=== PATIENT | female | born 1960 | race Caucasian/White ===

== ENCOUNTER 2017-08-01 21:20 | Inpatient (IN) | payer MEDICARE ==
[~2017-08-01] VITALS: Ht 172.7 cm; Wt 90.8 kg
[2017-08-01 21:44] LABS: HEMATOCRIT 38.3 % (34.6-47.8); HEMOGLOBIN 12.9 g/dL (11.7-16.4); WHITE BLOOD COUNT 8.8 x10^3/uL (3.4-10)
[2017-08-01] MEDS ORDERED: DOCUSATE 100 MG CAPSULE PO PRN (23:30)
[2017-08-01] MEDS ORDERED: BISACODYL 10 MG SUPP PR PRN (23:30)
[2017-08-01] MEDS ORDERED: ONDANSETRON 2MG/ML, 2ML IVPush PRN (23:30)
[2017-08-02] MEDS: ENOXAPARIN 40 MG/0.4 ML SQ SCH ×2 (01:13→23:30)
[2017-08-02] MEDS: SODIUM CHLORIDE 0.9% 1,000 ML IV SCH ×3 (01:13→21:00)
[2017-08-02 04:27] VITALS: BP 121/64
[2017-08-02 08:24] VITALS: BP 113/66
[2017-08-02] MEDS ORDERED: ZOLP10TA5 PO (09:51)
[2017-08-02] MEDS ORDERED: GABA600T2 PO (09:51)
[2017-08-02] MEDS ORDERED: ASPI-496 PO (09:51)
[2017-08-02] MEDS ORDERED: FLUT12AE INH (09:51)
[2017-08-02] MEDS ORDERED: QUET50TA5 PO (09:51)
[2017-08-02] MEDS ORDERED: FAMO-79 PO (09:51)
[2017-08-02] MEDS ORDERED: CLON-365 PO (09:51)
[2017-08-02] MEDS ORDERED: CARV3.122 PO (09:51)
[2017-08-02] MEDS ORDERED: VENL150C PO (09:51)
[2017-08-02] MEDS ORDERED: BISA5TAB5 PO (09:51)
[2017-08-02] MEDS ORDERED: OMEP20TA62 PO (09:51)
[2017-08-02] MEDS ORDERED: OXYC20TA2 PO (09:51)
[2017-08-02] MEDS ORDERED: QUET100T4 PO (09:51)
[2017-08-02] MEDS ORDERED: ACETAMINOPHEN 325 MG TABLET ONE (11:23)
[2017-08-02] MEDS ORDERED: ACETAMINOPHEN 325 MG TABLET PO PRN (11:30)
[2017-08-02 15:39] VITALS: BP 126/80
[2017-08-02] MEDS ORDERED: OxyconTIN ER 20 MG TAB.ER ONE (16:28)
[2017-08-02] MEDS: OxyconTIN ER 20 MG TAB.ER PO SCH ×2 (16:32→21:20)
[2017-08-02 19:15] VITALS: BP 104/66
[2017-08-02] MEDS: QUETIAPINE 25MG TABLET PO SCH (19:34)
[2017-08-02] MEDS ORDERED: QUETIAPINE 100MG TABLET PO SCH (21:00)
[2017-08-02] MEDS ORDERED: FAMOTIDINE 20 MG TABLET PO SCH (21:00)
[2017-08-02] MEDS ORDERED: ZOLPIDEM 10MG TABLET PO SCH (21:00)
[2017-08-02] MEDS: CARVEDILOL 3.125 MG TABLET PO SCH (21:20)
[2017-08-02] MEDS: GABAPENTIN 300 MG CAPSULE PO PRN (21:21)
[2017-08-03 02:18] VITALS: BP 99/48
[2017-08-03] MEDS: SODIUM CHLORIDE 0.9% 1,000 ML IV SCH (06:35)
[2017-08-03 07:44] VITALS: BP 117/72
[2017-08-03] MEDS: GABAPENTIN 300 MG CAPSULE PO PRN (08:16)
[2017-08-03] MEDS ORDERED: FLUTICASONE FUROATE 100MCG/INH INH SCH (09:00)
[2017-08-03] MEDS ORDERED: OMEPRAZOLE 20 MG CAPSULE.DR PO SCH (09:00)
[2017-08-03] MEDS ORDERED: BISACODYL 5 MG EC TABLET PO SCH (09:00)
[2017-08-03] MEDS ORDERED: ASPIRIN 81 MG TABLET EC PO SCH (09:00)
[2017-08-03] MEDS ORDERED: VENLAFAXINE 75 MG CAP ER PO SCH (09:00)
[2017-08-03] MEDS: OxyconTIN ER 20 MG TAB.ER PO SCH (09:44)
[2017-08-03] MEDS ORDERED: ATOR20TA9 PO (10:18)
[2017-08-03] MEDS: CARVEDILOL 3.125 MG TABLET PO SCH (10:25)
[2017-08-03] MEDS: QUETIAPINE 25MG TABLET PO SCH (10:26)
[2017-08-03] MEDS ORDERED: OxyconTIN ER 20 MG TAB.ER PO SCH (16:00)
== END 2017-08-03 23:22 | disposition home or self-care (01) | DRG 65 ==
LOC: SUATTDRO 22:07 → ED 22:41 → EDIP 22:57 → 4WST 23:16
PROVIDERS: ADMIT Emergency Medicine; ATTEND Emergency Medicine
DX: I63.9 Cerebral infarction, unspecified (principal); G81.91 Hemiplegia, unspecified affecting right dominant side; S09.90XA Unspecified injury of head, initial encounter; G62.9 Polyneuropathy, unspecified; R13.10 Dysphagia, unspecified; G11.9 Hereditary ataxia, unspecified; E78.5 Hyperlipidemia, unspecified; W06.XXXA Fall from bed, initial encounter; F17.200 Nicotine dependence, unspecified, uncomplicated; F32.9 Major depressive disorder, single episode, unspecified; F41.9 Anxiety disorder, unspecified; G89.29 Other chronic pain; I10 Essential (primary) hypertension; I25.10 Atherosclerotic heart disease of native coronary artery without angina pectoris; S16.1XXA Strain of muscle, fascia and tendon at neck level, initial encounter; Z86.73 Personal history of transient ischemic attack (TIA), and cerebral infarction without residual deficits; Y93.89 Activity, other specified; Y92.89 Other specified places as the place of occurrence of the external cause; Y99.8 Other external cause status; Z88.8 Allergy status to other drugs, medicaments and biological substances
CPT/HCPCS: 36415; 70450; 70553; 72125; 80047; 80061; 80307; 84443; 85025; 85610; 85730; 93005; 93306; 93880; 96372; 99285; J1650; G0479; J7030